=== PATIENT | male | born 1995 | race Caucasian/White ===

== ENCOUNTER 2021-06-10 02:18 | Emergency (ER) | payer BC, SELFPAY ==
[2021-06-10 02:19] VITALS: BP 140/83; PULSE 77; RESP 18; TEMP 36.1; O2SAT 98; BMI 34.5
--- NOTE | 2021-06-10 02:34 | EDS_ITS ---
HPI History of Present Illness Chief Complaint: Allergic Reaction Narrative Narrative: Patient is a 25-year-old male who states he ate something from a gas station around 130 today. He states that about 20 minutes later he started feeling like his tongue and throat were beginning to swell. He states this is happened in the past as well but he has never needed admitted to the hospital or intubated because of it. He states as he started feeling his tongue and throat were swelling he called EMS who gave him Benadryl prior to arrival. He states his receiving the Benadryl he feels normal. He denies any other new allergic exposures other than the recent ingestion PFSH [facility] Medical History no medical history Home Medications prednisone 40 mg PO DAILY 5 Days #10 tab 06/10/21 [Rx Last Taken Unknown] sertraline [Zoloft] 50 mg PO DAILY 06/10/21 [History Last Taken Unknown] ziprasidone HCl [Geodon] 40 mg PO DAILY 06/10/21 [History Last Taken Unknown] Allergy/AdvReac Type Severity Reaction Status Date / Time No Known Allergies Allergy Verified 06/10/21 02:24 Social History Smoking Status: Current every day smoker tobacco type: e-cigarettes ROS ROS ED Constitutional Constitutional ED: Denies chills or fever(s) ENT ENT ED: Reports other Details: Positive tongue/throat swelling ; Denies sore throat Cardiovascular Cardiovascular: Denies chest pain Respiratory/Chest Respiratory/Chest: Reports dyspnea; Denies cough Gastrointestinal Gastrointestinal: Denies abdominal pain, diarrhea, nausea or vomiting Genitourinary Genitourinary ED: Denies dysuria Musculoskeletal Musculoskeletal: Denies myalgias Integumentary Denies rash Neurologic Neurologic: Denies headache(s) Hematologic/Lymphatic Hematologic/Lymphatic: Denies easy bleeding or easy bruising EXAM Physical Exam Const Vital Signs: 06/10/21 02:19 Temperature 97.0 F L Temperature Source Temporal Pulse Rate 77 Respiratory Rate 18 Blood Pressure 140/83 H Blood Pressure Mean 102 Pulse Ox 98 Oxygen Delivery Method Room Air Positive well nourished and well developed General Appearance ED: well developed HEENT Reports moist mucous membranes HEENT Narrative: No tongue or lip swelling noted no oral lesions no airway edema or compromise Eyes PERRL and EOMs intact bilaterally Neck supple Neck Narrative: No crepitance noted Chest Wall inspection of chest normal Resp normal respiratory effort and clear to auscultation bilaterally Cardio regular rate and regular rhythm Extremity normal to inspection Neuro oriented x3 and CN's II-XII intact bilaterally Sensorium / Orientation: alert Motor Exam: strength 5/5 throughout Psych mental status grossly normal Skin no rashes or lesions noted MDM MDM MDM Narrative Medical decision making narrative: Patient presented to the ER in no acute respiratory distress and tolerating his secretions. He reported this became much easier and he felt much better after receiving Benadryl. His history is consistent with acute allergic reaction and therefore Pepcid and Solu-Medrol as ordered to complete the allergic reaction treatment. As he had no signs of respiratory distress or airway compromise I do not feel there is need for epinephrine. The patient was watched in the ER for approximately 1 hour and there was no return of respiratory distress or tongue/lip swelling and therefore patient is safe for discharge. Discharge Plan Triage Chief Complaint: Allergic Reaction ED Provider: Reinaldo Noonan Dx/Rx/DC Orders Clinical Impression: Allergic reaction Instructions: ED General Allergic Reactions Prescriptions: New prednisone 20 mg tablet 40 mg PO DAILY 5 Days Qty: 10 RF: 0 No Action ziprasidone HCl [Geodon] 40 mg Capsule 40 mg PO DAILY RF: 0 sertraline [Zoloft] 50 mg Tablet 50 mg PO DAILY RF: 0 Primary Care Provider: Care Physician,No Primary Referrals: Celso Han MD [STAFF PHYSICIAN] - 1 Week if not improving Care Physician,No Primary [Primary Care Provider] - Disposition Disposition: Home, Self Care
[2021-06-10] MEDS: MethylPREDNISolone 125 MG/2 ML Vial IV (02:38)
[2021-06-10] MEDS: Famotidine 200 MG/20 ML MDV 40 MG in 0.9% Normal Saline (Pres. free 6 ML 300 MG IV (02:41)
[2021-06-10 03:58] VITALS: BP 141/70; PULSE 78; RESP 16; O2SAT 97
== END 2021-06-10 03:59 | disposition home or self-care (01) ==
PROVIDERS: Emergency Provider Emergency Medicine; Visit Provider Emergency Medicine
DX: T78.40XA Allergy, unspecified, initial encounter (principal); F17.290 Nicotine dependence, other tobacco product, uncomplicated; Z79.899 Other long term (current) drug therapy; R06.00 Dyspnea, unspecified
CPT/HCPCS: 96365; 96375; 99285; J3490

== ENCOUNTER 2023-09-18 10:25 | Emergency (ER) | payer BC, SELFPAY ==
[2023-09-18 10:25] VITALS: BP 114/99; PULSE 89; RESP 16; TEMP 36.4; O2SAT 97; BMI 36.6
--- NOTE | 2023-09-18 11:14 | RAD_ITS ---
INDICATION: Injury/Pain EXAMINATION/TECHNIQUE: X-RAY - RIGHT HAND right fifth finger 3 VIEWS COMPARISON: No relevant prior comparison study available FINDINGS: SOFT TISSUES: No soft tissue swelling or gas. No radiopaque foreign body. BONES/JOINTS: No acute fracture or subluxation.. Normal alignment. Preservation of the joint space.. No sclerotic or destructive changes observed. RAD/Finger(s) Min 2 Views IMPRESSION: Negative. Electronically Signed: Alvin Lyon MD at 12:50 EDT ,
--- NOTE | 2023-09-18 11:15 | EX.ED.UPPERE ---
HPI History of Present Illness HPI Narrative: Patient presents with laceration to his right little finger that occurred today. Patient states he cut it on a broken glass. Patient admits to some tingling into the distal finger. Patient denies any weakness. Patient states his pain is worse with certain movements. Patient states his last tetanus was less than 5 years ago. Patient states the bleeding stopped after several minutes of pressure. Chief Complaint: Laceration Informant: patient Occured/Mechanism Comment: Cut on broken glass Onset/Context/Timing Onset: Today Context: Sudden Onset Timing: Continuous Location: Right little finger Worsened by: Nothing Relieved by: Nothing Associated Symptoms Associated Symptoms: Positive for Parasthesia; Negative for Weakness or Loss of Funtion Narrative Tetanus Immunization: <5 years PFSH PFS Medical History no medical history no medical history Home Medications ?Medication ?Instructions ?Recorded ?Last Taken ?Type prednisone 20 mg tablet 40 mg (2 x 20 mg) PO DAILY 5 days 06/10/21 Unknown Rx #10 tabs sertraline 50 mg tablet (Zoloft) 50 mg PO DAILY 06/10/21 Unknown History ziprasidone HCl 40 mg capsule 40 mg PO DAILY 06/10/21 Unknown History (Elijah) Allergy/AdvReac Type Severity Reaction Status Date / Time No Known Allergies Allergy Verified 09/18/23 10:25 Surgical History no surgical history no surgical history Social History Smoking Status: Current every day smoker tobacco type: e-cigarettes ROS ROS ED Constitutional Constitutional ED: Denies chills or fever(s) Eyes Eyes: Denies blurry vision or change in vision ENT ENT ED: Denies rhinorrhea or sore throat Cardiovascular Cardiovascular: Denies chest pain or palpitations Respiratory/Chest Respiratory/Chest: Denies cough or dyspnea Gastrointestinal Gastrointestinal: Denies nausea or vomiting Genitourinary Genitourinary ED: Denies dysuria or hematuria Musculoskeletal Musculoskeletal: Reports back pain; Denies neck pain Integumentary Denies abscess or rash Neurologic Neurologic: Denies headache(s) or weakness Allergic/Immunologic Allergic/Immunologic ED: Denies mouth swelling or urticaria EXAM Physical Exam Const Vital Signs: 09/18/23 10:25 Temperature 97.6 F L Temperature Source Temporal Pulse Rate 89 Respiratory Rate 16 Blood Pressure 114/99 H Blood Pressure Mean 104 Pulse Ox 97 Oxygen Delivery Method Room Air Positive well nourished and well developed General Appearance ED: well developed and NAD HEENT Reports moist mucous membranes normocephalic and atraumatic Neck full ROM and supple Extremity Extremity Narrative: There is a 2.5 cm curvilinear laceration over the dorsal aspect of the right small finger over the PIP joint area. There are no visualized foreign bodies. There is good range of motion of the MP, PIP, and DIP joints. There is no obvious deformity noted. Sensation was intact to light touch in all digits. Capillary refill was less than 2 seconds in all digits. Strength is 5/5 in flexion and extension of the MP, PIP, and DIP joints. Neuro oriented x3, CN's II-XII intact bilaterally, moves all extremities, no focal motor deficits and no sensory deficits noted Sensorium / Orientation: alert Motor Exam: strength 5/5 throughout MDM MDM MDM Narrative Medical decision making narrative: Differential diagnosis includes open fracture, retained foreign body, tendon laceration, and soft tissue laceration. X-rays of the right fifth finger will be obtained to assess for fracture and retained foreign body. Radiography Diagnostic Testing: X-rays of the right small finger were obtained. There are 3 views. On my independent interpretation, there is no radiopaque foreign body. There is no fracture. There is no dislocation noted. The eldest also interpreted the x-rays and agrees. Treatment and Re-Evaluation Narrative: Smoking cessation was discussed. Patient was advised of the need for laceration repair. Due to increased acuity in the emergency department, there was a delay in getting back to the patient to repair the laceration. Patient did not want to wait any longer and left AGAINST MEDICAL ADVICE. Nurse informed him that there is an increased risk of infection and delayed healing. Patient understood these risks and signed out AGAINST MEDICAL ADVICE. Discharge Plan Triage Chief Complaint: Laceration ED Provider: Albert Vu Dx/Rx/DC Orders Clinical Impression: Laceration of right little finger, Tobacco use disorder Prescriptions: No Action ziprasidone HCl [Geodon] 40 mg Capsule 40 mg PO DAILY sertraline [Zoloft] 50 mg Tablet 50 mg PO DAILY prednisone 20 mg tablet 40 mg PO DAILY 5 Days Qty: 10 0RF Primary Care Provider: Care Physician,No Primary Referrals: Care Physician,No Primary [Primary Care Provider] - Print Language: Swedish Disposition Disposition: Against Medical Advice Discharge Date/Time: 09/18/23 14:15
--- NOTE | 2023-09-18 14:14 | ED.RN ---
Patient left AMA. Discussed risks of leaving prior to suturing. Pt verbalized understanding
== END 2023-09-18 14:15 | disposition left against medical advice (07) ==
LOC: ED 12:04
PROVIDERS: Emergency Provider Emergency Medicine; Visit Provider Emergency Medicine
DX: S61.216A Laceration without foreign body of right little finger without damage to nail, initial encounter (principal); F17.290 Nicotine dependence, other tobacco product, uncomplicated; W25.XXXA Contact with sharp glass, initial encounter; Z53.29 Procedure and treatment not carried out because of patient's decision for other reasons
CPT/HCPCS: 73140; 99282

== ENCOUNTER 2023-12-25 20:56 | Emergency (ER) | payer BC, SELFPAY ==
[2023-12-25 20:57] VITALS: BP 161/107; PULSE 119; RESP 16; TEMP 35.8; O2SAT 100; BMI 36.8
--- NOTE | 2023-12-25 21:11 | ED.RN ---
Patient states he is allergic to any major psychotic drug, basically my throat just swells up.
--- NOTE | 2023-12-25 21:15 | ED.RN ---
Patient states he can see people especially when he is about to cross the barrier.
[2023-12-25 21:31] LABS: Absolute Lymphocyte Count 3.67 X10^3/uL (0.83-4.51); Absolute Neutrophil Count 5.4 X10^3/uL (2.0-7.7); Basophil# 0.04 X10^3/uL; Basophil% 0.4 % (0-1); Eosinophil# 0.09 X10^3/uL; Eosinophils% 0.9 % (0-5); Hematocrit 51.7 % (40-54); Hemoglobin 17.9 g/dL (13.0-16.5); Lymphocyte # 3.67 X10^3/ul (0.83-4.51); Lymphocyte % 35.5 % (19-41); Mean Corp Hgb Conc 34.6 g/dL (32-36); Mean Corpuscular Hgb 31.5 pg (27.0-32.0); Mean Platelet Vol. 9.4 fl (6.2-12.0); Monocyte# 1.18 X10^3/uL; Monocyte% 11.4 % (0-10); NRBC Flagged by Analyzer 0 % (0-5); Neutrophil # 5.35 X10^3/uL (2.7-7.7); Neutrophil % 51.6 % (47-70); Platelet Count 269 K/mm3 (150-450); RBC Distribution Width CV 12.6 % (11.6-14.6); RBC Distribution Width SD 42.2 fl (35.1-43.9); Red Blood Count 5.68 M/mm3 (4.6-6.2); White Blood Count 10.4 K/mm3 (4.4-11.0)
--- NOTE | 2023-12-25 21:32 | ED.RN ---
When prompted by registration about emergency contacts, patient stated that he is inside and if he ever leaves the hospital, he will kill himself. Patient also stated that he was from [facility] which is located in the [facility]. Patient requested Dr. Carmona to send him to a [facility] so he can be locked up forever.
[2023-12-25 21:49] LABS: Alcohol, Blood (Medical)-Serum < 3.0 mg/dL
[2023-12-25 21:50] LABS: Anion Gap 3 (5-15); BUN 24 mg/dL (7-18); BUN/Creat Ratio 17.1 RATIO (10-20); Chloride 106 mmol/L (98-107); EST Glomerular Filtration Rate 63 mL/min (>60); Est Glom Filt Rate - Afr Amer 77 mL/min (>60); Estimated Creatinine Clearance 84.03 ml/min; Glucose 131 mg/dL (74-106); Potassium 3.6 mmol/L (3.5-5.1); Sodium Level 140 mmol/L (136-145)
[2023-12-25 22:11] LABS: Amphetamine Urine VISTA NEGATIVE (<1000 ng/mL); Barbiturate Urine VISTA NEGATIVE (< 200 ng/mL); Benzodiazepine Urine VISTA NEGATIVE (< 200 ng/mL); Cocaine Urine VISTA NEGATIVE (< 300 ng/mL); Ecstacy Urine VISTA NEGATIVE (< 500 ng/mL); Methadone Urine VISTA NEGATIVE (< 300 ng/mL); PCP Urine VISTA NEGATIVE (< 25 ng/mL); THC Urine VISTA NEGATIVE (< 50 ng/mL); Vista UDS pH Range 5
--- NOTE | 2023-12-25 22:41 | ED.RN ---
CHART FAXED, CRISIS CALLED
--- NOTE | 2023-12-25 23:18 | EDS_ITS ---
HPI History of Present Illness Chief Complaint: Suicidal Narrative Narrative: Patient is a 28-year-old male with past medical history of hypertension, depression who presented to the emergency department with a chief complaint of suicidal ideation. Patient states that he wants to and he states that he does not have a specific plan, however he states that he can think of many ways how to kill himself. Patient states that he has been hospitalized before. Patient states that he did not try to hurt himself this evening he came here for help. [facility] Medical History Depression Hypertension Home Medications ?Medication ?Instructions ?Recorded ?Last Taken ?Type divalproex 500 mg tablet,extended 500 mg PO BID blood pressure 12/25/23 Unknown History release 24 hr gabapentin 600 mg tablet 600 mg PO TID 12/25/23 Unknown History Allergy/AdvReac Type Severity Reaction Status Date / Time No Known Allergies Allergy Verified 12/25/23 22:14 Social History Smoking Status: Heavy Smoker (>10/day) ROS ROS ED ROS Narrative Constitutional: Denies any headaches, fevers, chills, lightness, dizziness Eyes: Denies change in vision double vision blurry vision Cardiovascular: Denies chest pain or palpitations Respiratory: Denies coughing wheezing shortness of breath Abdomen: Denies abdominal pain nausea vomit diarrhea : Denies any urinary symptoms Neurological: Denies any numbness, weakness, tingling Musculoskeletal: Denies back pain Skin: Denies any rashes or lesions EXAM Physical Exam Narrative Exam Narrative: General: Patient lying in bed rest comfortably did not appear to be acute distress Head: Atraumatic, normocephalic Eyes: PERRL bilateral, EOMI bilateral, no conjunctival injection noted Neck: Soft, supple, trachea midline Cardiovascular: Regular rate and rhythm no murmurs gallops rubs noted Respiratory: Clear to auscultation bilaterally no rales rhonchi or wheeze noted Abdomen: Soft, nondistended, nontender to palpation can bowel sounds present was 4 Extremities: +5/5 strength noted in the bilateral upper and lower extremities, no pedal edema on exam, radial pulses +2/4 in the bilateral extremities Neurological: Patient following commands knew he was at [facility] years 2023. Psychiatric: Patient is calm and cooperative Skin: Warm, dry, intact Const Vital Signs: 12/25/23 20:57 12/26/23 00:21 Temperature 96.5 F L Temperature Source Temporal Pulse Rate 119 H 76 Respiratory Rate 16 15 Blood Pressure 161/107 H 131/84 H Blood Pressure Mean 125 99 Pulse Ox 100 98 Oxygen Delivery Method Room Air Room Air MDM MDM MDM Narrative Medical decision making narrative: Patient is a 28-year-old male who presented to the emergency department with a chief complaint of suicidal ideation. Patient will be medically cleared here and then be evaluate by crisis. Patient will be pink slipped here in the emergency department. Patient CBC reviewed and was largely unremarkable no evidence leukocytosis white blood count normal at 10.4, hemoglobin 17.9, platelet count normal at 769. Patient sodium normal 140, potassium normal at 3.6, creatinine was 1.40. Patient's drug screen was negative, alcohol level less than 3. Patient will be medically cleared for crisis evaluation. Patient's blood pressure was repeated and his blood pressure improved s ignificantly to 131/84 heart rate was normal at 76. Patient will not require any antihypertensive now. Patient is pending crisis evaluation therefore patient's case was signed out to oncoming provider. Patient was pink slipped. See their note for ultimate details on disposition. Lab Data Labs: Laboratory Results - last 24 hr 12/25/23 12/25/23 21:22 21:28 WBC 10.4 RBC 5.68 Hgb 17.9 H Hct 51.7 MCV 91.0 MCH 31.5 MCHC 34.6 RDW Std Deviation 42.2 RDW Coeff of Parul 12.6 Plt Count 269 MPV 9.4 Immature Gran % (Auto) 0.200 Neut % (Auto) 51.6 Lymph % (Auto) 35.5 [place]in[place] % (Auto) 11.4 H Eos % (Auto) 0.9 Baso % (Auto) 0.4 Absolute Neuts (auto) 5.4 Absolute Lymphs (auto) 3.67 Nucleated RBC % 0 Sodium 140 Potassium 3.6 Chloride 106 Carbon Dioxide 31.0 Anion Gap 3 L BUN 24 H Creatinine 1.40 H Estim Creat Clear Calc 84.03 Est GFR (MDRD) Af Amer 77 Est GFR (MDRD) Non-Af 63 BUN/Creatinine Ratio 17.1 Glucose 131 H Calcium 9.0 Urine Opiates Screen NEGATIVE Urine Methadone Screen NEGATIVE Ur Barbiturates Screen NEGATIVE Ur Phencyclidine Scrn NEGATIVE Ur Amphetamines Screen NEGATIVE MDMA (Ecstasy) Screen NEGATIVE U Benzodiazepines Scrn NEGATIVE Urine Cocaine Screen NEGATIVE U Cannabinoids Screen NEGATIVE Ur Drug Screen Comment Ethyl Alcohol < 3.0 Discharge Plan Triage Chief Complaint: Suicidal ED Provider: Jung Carmona Dx/Rx/DC Orders Clinical Impression: Suicidal ideation Prescriptions: No Action gabapentin 600 mg tablet 600 mg PO TID divalproex 500 mg tablet extended release 24 hr 500 mg PO BID Primary Care Provider: Care Physician,No Primary Referrals: Care Physician,No Primary [Primary Care Provider] - Print Language: Frisian
[2023-12-26 00:21] VITALS: BP 131/84; PULSE 76; RESP 15; O2SAT 98
--- NOTE | 2023-12-26 01:14 | ED.RN ---
CRISIS EVALUATED, PENDING AT [facility]
--- NOTE | 2023-12-26 01:58 | ED.RN ---
PT ACCEPTED AT [facility] DR. CONNER [id number] [phone].
[2023-12-26 03:50] VITALS: BP 135/78; PULSE 74; RESP 16; TEMP 36.6; O2SAT 99
[2023-12-26] MEDS: Gabapentin 300 MG Capsule 600 MG PO (06:13)
== END 2023-12-26 08:14 ==
PROVIDERS: Emergency Provider Emergency Medicine; Visit Provider Emergency Medicine
DX: F32.A Depression, unspecified (principal); R45.851 Suicidal ideations; I10 Essential (primary) hypertension; F17.200 Nicotine dependence, unspecified, uncomplicated
CPT/HCPCS: 80048; 80307; 82077; 85025; 99285